=== PATIENT | female | born 1975 | race Two or more races ===

== ENCOUNTER 2019-07-04 18:44 | Inpatient (IN) | payer BC ==
[~2019-07-04] VITALS: Ht 157.5 cm; Wt 74.1 kg
[2019-07-04] MEDS ORDERED: NEWBORN KIT ONE (18:46)
[2019-07-04] MEDS ORDERED: OXYTOCIN 30U/ 0.9% NaCL 500ML 500 ML ONE (18:46)
[2019-07-04] MEDS ORDERED: SODIUM CITRATE/CITRIC ACID 30 ML UDC PO ONE (19:00)
[2019-07-04] MEDS ORDERED: METOCLOPRAMIDE 5 MG/ML, 2ML IV ONE (19:00)
[2019-07-04] MEDS ORDERED: LACTATED RINGERS 1,000 ML IVBOLUS ONE (19:00)
[2019-07-04 19:14] VITALS: BP 131/68
[2019-07-04] MEDS ORDERED: LACTATED RINGERS 1,000 ML IV SCH ×2 (19:18→19:46)
[2019-07-04] MEDS ORDERED: D5%-LACTATED RINGERS 1,000 ML IV SCH (19:18)
[2019-07-04 19:27] LABS: BASOPHILS # (AUTO) 0.04 x10^3/uL (0-0.1); BASOPHILS % (AUTO) 0 % (0-1); EOSINOPHILS # (AUTO) 0.05 x10^3/uL (0-0.4); EOSINOPHILS % (AUTO) 1 % (1-7); LYMPHOCYTES # (AUTO) 2.36 x10^3/uL (1-3.4); LYMPHOCYTES % (AUTO) 22 % (22-44); MD NO; MEAN CORPUSCULAR HEMOGLOBIN 34.1 pg (27.0-34.8); MEAN CORPUSCULAR HGB CONC 34.7 g/dL (32.4-35.8); MEAN CORPUSCULAR VOLUME 98.2 fL (80-100); MEAN PLATELET VOLUME 9.5 fL (7.4-10.4); MONOCYTES # (AUTO) 0.41 x10^3/uL (0.2-0.8); MONOCYTES % (AUTO) 4 % (2-9); NEUTROPHILS # (AUTO) 7.84 x10^3/uL (1.8-6.8); NEUTROPHILS % (AUTO) 73 % (42-75); PLATELET COUNT 145 x10^3/uL (130-400); RED CELL DISTRIBUTION WIDTH 13.7 % (9.6-15.2)
[2019-07-04] MEDS ORDERED: FENTANYL PF 100 MCG/2ML IV PRN ×2 (19:30→22:00)
[2019-07-04] MEDS ORDERED: TERBUTALINE 1 MG/ML, 1ML IVPush PRN (19:30)
[2019-07-04] MEDS ORDERED: FENTANYL PF 100 MCG/2ML IVPush PRN (19:30)
[2019-07-04] MEDS ORDERED: PLEASE ENTER ALLERGIES MC SCH (19:30)
[2019-07-04] MEDS ORDERED: ONDANSETRON 2MG/ML, 2ML IVPush PRN ×2 (19:30→22:00)
[2019-07-04] MEDS ORDERED: AMPICILLIN 2 GM in SODIUM CHLORIDE 0.9% 100 ML IV ONE (19:30)
[2019-07-04] MEDS ORDERED: TERBUTALINE 1 MG/ML, 1ML SQ PRN (19:30)
[2019-07-04] MEDS ORDERED: FENTANYL PF 500 MCG, BUPIVACAINE/PF 0.5%, 30ML 62.5 ML in SODIUM CHLORIDE 0.9% 177.5 ML EPIDCONT SCH ×2 (19:40→21:00)
[2019-07-04] MEDS ORDERED: FENTANYL/BUPIV./NS/PF 250 ML EPIDCONT ONE (19:41)
[2019-07-04] MEDS ORDERED: FENTANYL/BUPIV./NS/PF 250 ML EPIDCONT SCH (19:46)
[2019-07-04] MEDS ORDERED: pantoprazole (19:49)
[2019-07-04] MEDS ORDERED: Tums (19:49)
[2019-07-04] MEDS ORDERED: NALOXONE 0.4 MG/ML, 1ML IVPush PRN (20:00)
[2019-07-04] MEDS ORDERED: EPHEDRINE 50 MG/ML, 1ML IVPush PRN ×2 (20:00→22:00)
[2019-07-04] MEDS ORDERED: LACTATED RINGERS 1,000 ML IVBOLUS PRN ×2 (20:00)
[2019-07-04] MEDS ORDERED: HYDROcodone/APAP 7.5-325MG/15ML UDC PO PRN (22:00)
[2019-07-04] MEDS ORDERED: HYDROmorphone 2 MG/ML, 1ML IVPush PRN (22:00)
[2019-07-04] MEDS ORDERED: MEPERIDINE/PF 25MG/0.5ML IVPush PRN (22:00)
[2019-07-04] MEDS ORDERED: ALBUTEROL SULFATE 2.5 MG/3 ML NPPB PRN (22:00)
[2019-07-04] MEDS ORDERED: PROMETHAZINE 25 MG/ML, 1ML IV PRN (22:00)
[2019-07-04] MEDS ORDERED: METOPROLOL 1 MG/ML, 5ML IV PRN (22:00)
[2019-07-04] MEDS ORDERED: MIDAZOLAM 1 MG/ML, 2ML IV PRN (22:00)
[2019-07-04] MEDS ORDERED: hydrALAzine 20 MG/ML, 1ML IV PRN (22:00)
[2019-07-04] MEDS ORDERED: LABETALOL 5MG/ML, 20ML IV PRN (22:00)
[2019-07-04] MEDS ORDERED: OXYcodone 5 MG/5 ML ORAL.SOL UDC PO PRN (22:00)
[2019-07-04] MEDS ORDERED: OXYTOCIN 30U/ 0.9% NaCL 500ML 500 ML IV PRN (22:40)
[2019-07-04] MEDS ORDERED: AMPICILLIN 2 GM IM SCH (23:00)
[2019-07-04] MEDS ORDERED: AMPICILLIN 2 GM in SODIUM CHLORIDE 0.9% 100 ML IV SCH (23:00)
[2019-07-04] MEDS ORDERED: AMPICILLIN 2 GM IV SCH (23:00)
[2019-07-04] MEDS ORDERED: OXYTOCIN 30U/ 0.9% NaCL 500ML 500 ML IV SCH (23:53)
[2019-07-05] MEDS ORDERED: RHOGAM FROM BLOOD BANK 1 NOTE EA IM/IV ONE
[2019-07-05] MEDS ORDERED: MISOPROSTOL 200 MCG TABLET PR PRN
[2019-07-05] MEDS ORDERED: DOCUSATE 100 MG CAPSULE PO PRN
[2019-07-05] MEDS ORDERED: MEASLES,MUMPS&RUBELLA VACC/PF 0.5 ML SQ-VACC PRN
[2019-07-05] MEDS ORDERED: ACETAMINOPHEN 325 MG TABLET PO PRN ×2
[2019-07-05] MEDS ORDERED: MAGNESIUM HYDROXIDE 8%, 30ML UDC PO PRN
[2019-07-05] MEDS ORDERED: HYDROcodone/APAP 5/325 TABLET PO PRN ×2
[2019-07-05 01:50] VITALS: BP 116/70
[2019-07-05] MEDS: IBUPROFEN 600 MG TABLET PO PRN ×3 (01:57→14:27)
[2019-07-05 04:47] VITALS: BP 103/66
[2019-07-05 08:05] VITALS: BP 108/72
[2019-07-05 08:36] LABS: MEAN CORPUSCULAR HEMOGLOBIN 33.8 pg (27.0-34.8); MEAN CORPUSCULAR HGB CONC 33.4 g/dL (32.4-35.8); MEAN PLATELET VOLUME 9.4 fL (7.4-10.4); PLATELET COUNT 138 x10^3/uL (130-400); RED BLOOD COUNT 3.96 x10^6/uL (3.82-5.3); RED CELL DISTRIBUTION WIDTH 13.5 % (9.6-15.2)
[2019-07-05] MEDS ORDERED: PRENATAL VIT/IRON/FA 1 EACH TABLET PO SCH (09:00)
[2019-07-05 09:17] LABS: BASOPHILS # (AUTO) 0.04 x10^3/uL (0-0.1); BASOPHILS % (AUTO) 0 % (0-1); EOSINOPHILS # (AUTO) 0.07 x10^3/uL (0-0.4); EOSINOPHILS % (AUTO) 1 % (1-7); LYMPHOCYTES # (AUTO) 2.01 x10^3/uL (1-3.4); LYMPHOCYTES % (AUTO) 16 % (22-44); MD SCAN; MONOCYTES # (AUTO) 0.65 x10^3/uL (0.2-0.8); MONOCYTES % (AUTO) 5 % (2-9); NEUTROPHILS # (AUTO) 9.59 x10^3/uL (1.8-6.8); NEUTROPHILS % (AUTO) 78 % (42-75)
[2019-07-05] MEDS ORDERED: IBUP-1222 PO (11:08)
[2019-07-05 12:35] VITALS: BP 107/68
== END 2019-07-05 14:43 | disposition home or self-care (01) | DRG 807 ==
LOC: LDOP 18:44 → LDIP 18:56 → 2NW 07-05 01:00
PROVIDERS: ADMIT Obstetrics & Gynecology; ATTEND Obstetrics & Gynecology
PROC: 10E0XZZ Delivery of Products of Conception, External Approach (ICD-10-PCS; principal; 2019-07-04)
PROC: 3E0R3BZ Introduction of Anesthetic Agent into Spinal Canal, Percutaneous Approach (ICD-10-PCS; 2019-07-04)
PROC: 00HU33Z Insertion of Infusion Device into Spinal Canal, Percutaneous Approach (ICD-10-PCS; 2019-07-04)
PROC: 10907ZC Drainage of Amniotic Fluid, Therapeutic from Products of Conception, Via Natural or Artificial Opening (ICD-10-PCS; 2019-07-04)
DX: O69.3XX0 Labor and delivery complicated by short cord, not applicable or unspecified (principal); Z37.0 Single live birth; J45.909 Unspecified asthma, uncomplicated; O34.219 Maternal care for unspecified type scar from previous cesarean delivery; O99.52 Diseases of the respiratory system complicating childbirth; Z3A.36 36 weeks gestation of pregnancy; Z90.49 Acquired absence of other specified parts of digestive tract
CPT/HCPCS: 36415; 85025; 86592; 86850; 86900; G0378; J0290; J2590; J2765; J3010; J7120